=== PATIENT | female | born 1995 | race Caucasian/White ===

== ENCOUNTER 2021-12-28 14:32 | Emergency (ER) | payer OTHER | END 2021-12-28 16:15 | disposition left against medical advice (07) | LOC: FER 14:32 | DX: O99.891 Other specified diseases and conditions complicating pregnancy (principal); O99.511 Diseases of the respiratory system complicating pregnancy, first trimester; O99.711 Diseases of the skin and subcutaneous tissue complicating pregnancy, first trimester; R53.83 Other fatigue; R53.1 Weakness; J32.9 Chronic sinusitis, unspecified; L29.9 Pruritus, unspecified; Z3A.01 Less than 8 weeks gestation of pregnancy; Z53.21 Procedure and treatment not carried out due to patient leaving prior to being seen by health care provider; Z28.310 Unvaccinated for COVID-19 ==